=== PATIENT | female | born 1945 | race Caucasian/White ===

== ENCOUNTER 2021-04-27 16:42 | Observation (INO) ==
[2021-04-27] MEDS ORDERED: *HR* OxyCODONE Immed Rel 5 MG TABLET PO PRN (19:23)
[2021-04-27] MEDS ORDERED: Acetaminophen 325 MG TABLET PO PRN (19:23)
[2021-04-27] MEDS ORDERED: Ondansetron ODT 4 MG TAB.RAPDIS SL PRN (19:23)
[2021-04-27] MEDS ORDERED: Naloxone 0.4 MG/ML INJ IVP PRN (19:23)
[2021-04-27] MEDS ORDERED: Melatonin 3 MG TABLET PO PRN (19:23)
[2021-04-27] MEDS ORDERED: Perflutren Lipid Microsphere 1.3 ML in 0.9 % Sodium Chloride 8.7 ML IVP PRN (19:28)
[2021-04-27] MEDS ORDERED: D5% in Water 1,000 ML IVC PRN (19:32)
[2021-04-27] MEDS ORDERED: *HR* Dextrose 50 % in Water (Syg) 50 ML SYRINGE IVP PRN (19:32)
[2021-04-27] MEDS ORDERED: Dextrose 4 GM Chewable Tablets PO PRN ×2 (19:32)
[2021-04-27] MEDS ORDERED: Nitroglycerin 0.4 MG TAB.SUBL SL PRN (19:33)
[2021-04-28] MEDS: Insulin LISPRO 300 UNITS/3 ML VIAL SUBQ SCH ×4 (03:36→17:07)
[2021-04-28 05:13] LABS: Hematocrit 39.6 % (35.3-44.9); Hemoglobin 12.8 g/dL (11.5-15.4); Mean Corpuscular HGB Conc 32.3 g/dL (31.6-35.5); Mean Corpuscular Hemoglobin 26.7 pg (28.0-33.3); Mean Corpuscular Volume 82.5 fL (83.0-100.0); Mean Platelet Volume 8.8 fL (9.4-12.4); Platelet Count 342 K/mcL (140-400); Red Cell Distribution Width 14.5 % (11.5-14.5); White Blood Count 8.4 K/mcL (4.3-11.1)
[2021-04-28] MEDS ORDERED: Regadenoson 0.4 MG/5 ML SYRINGE IVP ONE ×2 (06:01→10:31)
[2021-04-28 06:06] LABS: Calcium 8.7 mg/dL (8.6-10.3); Chol/HDL Ratio 2.7 (0-4.9); Phosphorous 4.7 mg/dL (2.7-4.5); Potassium 4.1 mEq/L (3.5-5.1)
[2021-04-28 06:09] LABS: Thyroid Stimulating Hormone 1.045 mcIU/mL (0.340-5.600)
[2021-04-28 09:48] LABS: Estimated Average Glucose 229 mg/dl; Hemoglobin A1C 9.6 %
[2021-04-28] MEDS ORDERED: Perflutren Lipid Microsphere 1.3 ML in 0.9 % Sodium Chloride 8.7 ML IVP PRN (11:25)
[2021-04-28] MEDS: Aspirin 81 MG TAB.CHEW PO SCH (12:32)
[2021-04-28] MEDS ORDERED: Insulin LISPRO 300 UNITS/3 ML VIAL SUBQ SCH (21:00)
[2021-04-29] MEDS ORDERED: *HR* Enoxaparin 40 MG/0.4 ML SYRINGE SQ SCH (06:00)
[2021-04-29] MEDS: Aspirin 81 MG TAB.CHEW PO SCH (07:53)
[2021-04-29] MEDS: Insulin LISPRO 300 UNITS/3 ML VIAL SUBQ SCH ×2 (07:54→12:36)
[2021-04-29] MEDS ORDERED: Isosorbide MONOnitrate (24 HR) 30 MG TAB.ER.24H PO SCH (13:30)
[2021-04-29 14:22] VITALS: BP 147/87; PULSE 85; TEMP 98; O2SAT 94
== END 2021-04-29 16:35 | disposition home or self-care (01) ==
LOC: 3BNU → SUATTDRO 18:41
PROVIDERS: ADMIT Internal Medicine; ATTEND Registered Nurse